=== PATIENT | male | born 1955 | race Caucasian/White ===

== ENCOUNTER 2017-08-12 09:36 | Inpatient (IN) ==
[2017-08-12] MEDS ORDERED: MAGNESIUM SULF RIDER 4 GM in PREMIX 1 EACH IV PRN (10:07)
[2017-08-12] MEDS ORDERED: ACETAMINOPHEN 325 MG TABLET PO PRN (10:07)
[2017-08-12] MEDS ORDERED: NITROGLYCERIN SL 0.4 MG TABLET SL PRN (10:07)
[2017-08-12] MEDS ORDERED: ONDANSETRON 4 MG/2 ML VIAL IV PRN (10:07)
[2017-08-12] MEDS ORDERED: MAGNESIUM SULF RIDER 2 GM in PREMIX 1 EACH IV PRN (10:07)
[2017-08-12] MEDS: SODIUM CHLORIDE 0.45% 1,000 ML IV SCH (12:50)
[2017-08-12 14:16] LABS: Magnesium 1.5 MG/DL (1.8-2.4); Risk Ratio 4.43; VLDL CHOLESTEROL 16.8 MG/DL
[2017-08-12] MEDS: PANTOPRAZOLE 40 MG TABLET PO SCH (14:46)
[2017-08-12] MEDS: AZITHROMYCIN INJ 500 MG in SODIUM CHLORIDE 0.9% 250 ML IV SCH (14:46)
[2017-08-12] MEDS: GABAPENTIN 300 MG CAPSULE PO SCH ×2 (15:00→21:03)
[2017-08-12] MEDS: FAMOTIDINE 20 MG TABLET PO SCH (21:03)
[2017-08-13 06:05] LABS: Basophils % 0.4 % (0.0-0.8); Eosinophils % 0.4 % (0.00-10.9); Hematocrit 42.8 VOL% (42.0-52.0); Hemoglobin 14.1 GM/DL (14.0-18.0); Immature Granulocytes % 0.5 %; Immature Granulocytes Absolute 0.04 #; Lymphocytes # 1.1 10*3/uL (1.4-4.0); Lymphocytes % 13.6 % (21.2-54.2); Mean Corpuscular HGB Conc 32.9 GM/DL (32-36); Mean Corpuscular Hemoglobin 30 PG (27-34); Mean Corpuscular Volume 91.1 FL (87-102); Mean Platelet Volume 9.6 FL (9.6-12.0); Monocytes # 0.7 10*3/uL (0.11-0.8); Monocytes % 9.2 % (1.7-12.7); Neutrophils % 75.9 % (38.7-73.9); Platelet Count 184 T/CUMM (130-400); Red Cell Distribution Width 15.2 % (9.3-17.3); White Blood Count 7.9 T/CUMM (4-12)
[2017-08-13 06:32] LABS: Band Neutrophils 5 % (0-10); Lymphocytes 13 % (20-55); Segmented Neutrophils 76 % (50-85); Total Cells Counted 100
[2017-08-13 06:33] LABS: Hypochromasia 1+; Microcytosis Slight; Platelet Estimate Adequate
[2017-08-13] MEDS: FAMOTIDINE 20 MG TABLET PO SCH ×2 (08:41→21:41)
[2017-08-13] MEDS: LISINOPRIL 10 MG TABLET PO SCH (08:41)
[2017-08-13] MEDS: GABAPENTIN 300 MG CAPSULE PO SCH ×3 (08:42→21:42)
[2017-08-13] MEDS: PANTOPRAZOLE 40 MG TABLET PO SCH (08:42)
[2017-08-13 09:06] LABS: Osmolality,Calculated 267.4 MOS/KG (273-304); Potassium 4.6 MMOL/L (3.5-5.1)
[2017-08-13 09:12] LABS: Troponin I Only 0.346 NG/ML (0.00-0.045)
[2017-08-13] MEDS: NICOTINE 14 MG/24 HR PATCH TRANSDERM SCH (09:44)
[2017-08-13] MEDS: ASPIRIN EC 81 MG TABLET PO SCH (09:44)
[2017-08-13] MEDS: CARVEDILOL 12.5 MG TABLET PO SCH ×2 (09:44→21:42)
[2017-08-13] MEDS: cefTRIAXone 1,000 MG in SYRINGE 1 EACH IV SCH (09:46)
[2017-08-13] MEDS ORDERED: ALBUTEROL/IPRATROPIUM 3 ML NEB RESP TX PRN (09:58)
[2017-08-13] MEDS: SODIUM CHLORIDE 0.45% 1,000 ML IV SCH ×2 (10:32→10:51)
[2017-08-13] MEDS: predniSONE 50 MG TABLET PO SCH (10:48)
[2017-08-13] MEDS: AZITHROMYCIN INJ 500 MG in SODIUM CHLORIDE 0.9% 250 ML IV SCH (13:56)
[2017-08-13] MEDS ORDERED: ATORVASTATIN 40 MG TABLET PO SCH (21:00)
[2017-08-14] MEDS: SODIUM CHLORIDE 0.45% 1,000 ML IV SCH (04:49)
[2017-08-14 08:29] VITALS: BP 112/69
[2017-08-14] MEDS: LISINOPRIL 10 MG TABLET PO SCH (09:27)
[2017-08-14] MEDS: CARVEDILOL 12.5 MG TABLET PO SCH (09:27)
[2017-08-14] MEDS: NICOTINE 14 MG/24 HR PATCH TRANSDERM SCH (09:27)
[2017-08-14] MEDS: GABAPENTIN 300 MG CAPSULE PO SCH (09:27)
[2017-08-14] MEDS: FAMOTIDINE 20 MG TABLET PO SCH (09:28)
[2017-08-14] MEDS: cefTRIAXone 1,000 MG in SYRINGE 1 EACH IV SCH (09:28)
[2017-08-14] MEDS: ASPIRIN EC 81 MG TABLET PO SCH (09:28)
[2017-08-14] MEDS: predniSONE 50 MG TABLET PO SCH (09:28)
[2017-08-14] MEDS: PANTOPRAZOLE 40 MG TABLET PO SCH (09:31)
== END 2017-08-14 14:19 | disposition home or self-care (01) | DRG 190 ==
LOC: N.TELEN 11:33 → SUATTDRO 11:33
PROVIDERS: ADMIT Internal Medicine Nephrology; ATTEND Internal Medicine Geriatric Medicine

== ENCOUNTER 2021-07-30 08:14 | Inpatient (IN) ==
[2021-07-30] MEDS ORDERED: ALBUTEROL/IPRATROPIUM 3 ML NEB RESP TX STA (08:30)
[2021-07-30 08:48] LABS: Basophils # 0.1 10*3/uL (0.0-0.2); Basophils % 0.4 % (0.0-0.8); Hematocrit 42.6 VOL% (42.0-52.0); Hemoglobin 13.1 GM/DL (14.0-18.0); Immature Granulocytes % 3.2 %; Immature Granulocytes Absolute 0.95 #; Lymphocytes # 0.7 10*3/uL (1.4-4.0); Lymphocytes % 2.2 % (21.2-54.2); Mean Corpuscular HGB Conc 30.8 GM/DL (32-36); Mean Corpuscular Volume 90.1 FL (87-102); Mean Platelet Volume 10.3 FL (9.6-12.0); Monocytes % 5.3 % (1.7-12.7); Neutrophils % 88.9 % (38.7-73.9); Platelet Count 303 T/CUMM (130-400); Red Blood Count 4.73 MC/CUMM (3.8-5.5); Red Cell Distribution Width 16.8 % (9.3-17.3); White Blood Count 29.7 T/CUMM (4-12)
[2021-07-30 09:00] LABS: ABG Base Excess 2.9 MMOL/L (-2.5-2.5); ABG HCO3 26.9 MMOL/L (20-26); ABG Oxygen Saturation 94.9 % (95-100); ABG PCO2 47.5 MM HG (35-48); ABG PH 7.389 (7.35-7.45); ABG PO2 74.2 MM HG (80-95); ABG TCO2 25.1 MMOL/L (23-27); Allen Test Positive
[2021-07-30 09:09] LABS: Band Neutrophils 4 % (0-10); Lymphocytes 1 % (20-55); Platelet Estimate Adequate; Segmented Neutrophils 92 % (50-85); Total Cells Counted 100
[2021-07-30 09:10] LABS: Albumin 2.6 G/DL (3.4-5.0); Bilirubin,Total 2.5 MG/DL (0.20-1.00); Calcium 8.5 MG/DL (8.5-10.1); Osmolality,Calculated 269.5 MOS/KG (273-304); Potassium 4.6 MMOL/L (3.5-5.1); Total Protein 6.9 G/DL (6.4-8.2)
[2021-07-30] MEDS ORDERED: VANCOMYCIN INJ 1,500 MG in SODIUM CHLORIDE 0.9% 250 ML IV STA (09:12)
[2021-07-30] MEDS ORDERED: GLUCAGON 1 MG VIAL IM PRN ×2 (11:22)
[2021-07-30] MEDS ORDERED: ONDANSETRON 4 MG/2 ML VIAL IV PRN (11:22)
[2021-07-30] MEDS ORDERED: ACETAMINOPHEN 325 MG TABLET PO PRN (11:22)
[2021-07-30] MEDS ORDERED: DEXTROSE 50% 25 GM/50 ML VIAL IV PRN (11:22)
[2021-07-30] MEDS ORDERED: DEXTROSE 50% 25 GM/50 ML SYRINGE IV PRN (11:37)
[2021-07-30] MEDS ORDERED: hydrALAZINE 20 MG/1 ML VIAL IV PRN (11:39)
[2021-07-30] MEDS ORDERED: DOCUSATE SODIUM 100 MG CAPSULE PO PRN (11:46)
[2021-07-30] MEDS: ENOXAPARIN 40 MG/0.4 ML SYRINGE SUBCUT SCH (12:40)
[2021-07-30] MEDS: methylPREDNISolone SOD SUC 40 MG/1 ML VIAL IV SCH ×2 (12:51→20:37)
[2021-07-30] MEDS: SODIUM CHLORIDE 0.9% 1,000 ML IV SCH ×2 (12:51→20:44)
[2021-07-30] MEDS: PANTOPRAZOLE 40 MG TABLET PO SCH (12:51)
[2021-07-30] MEDS: LEVOFLOXACIN INJ 750 MG/150 ML PREMIX IV SCH (12:52)
[2021-07-30] MEDS: INSULIN LISPRO 100 UNIT/ML SUBCUT SCH ×3 (12:55→20:36)
[2021-07-30] MEDS: ALBUTEROL/IPRATROPIUM 3 ML NEB RESP TX SCH ×2 (14:05→19:30)
[2021-07-30] MEDS: ATORVASTATIN 40 MG TABLET PO SCH (20:36)
[2021-07-30] MEDS: GABAPENTIN 300 MG CAPSULE PO SCH (20:36)
[2021-07-31] MEDS: ALBUTEROL/IPRATROPIUM 3 ML NEB RESP TX SCH ×4 (01:56→18:52)
[2021-07-31 02:02] LABS: Basophils % 0.1 % (0.0-0.8); Hematocrit 40.2 VOL% (42.0-52.0); Hemoglobin 12.2 GM/DL (14.0-18.0); Immature Granulocytes % 1.8 %; Immature Granulocytes Absolute 0.49 #; Lymphocytes # 0.5 10*3/uL (1.4-4.0); Lymphocytes % 1.7 % (21.2-54.2); Mean Corpuscular HGB Conc 30.3 GM/DL (32-36); Mean Corpuscular Volume 90.7 FL (87-102); Mean Platelet Volume 10.1 FL (9.6-12.0); Monocytes % 4.7 % (1.7-12.7); Neutrophils % 91.7 % (38.7-73.9); Platelet Count 256 T/CUMM (130-400); Red Blood Count 4.43 MC/CUMM (3.8-5.5); Red Cell Distribution Width 16.5 % (9.3-17.3); White Blood Count 27.6 T/CUMM (4-12)
[2021-07-31 02:16] LABS: Calcium 8.6 MG/DL (8.5-10.1); Osmolality,Calculated 272.4 MOS/KG (273-304); Potassium 3.8 MMOL/L (3.5-5.1)
[2021-07-31 03:49] LABS: Band Neutrophils 7 % (0-10); Hypochromasia 1+; Lymphocytes 2 % (20-55); Microcytosis 1+; Segmented Neutrophils 86 % (50-85); Total Cells Counted 100
[2021-07-31] MEDS: SODIUM CHLORIDE 0.9% 1,000 ML IV SCH ×2 (04:55→10:40)
[2021-07-31] MEDS: methylPREDNISolone SOD SUC 40 MG/1 ML VIAL IV SCH ×3 (04:55→20:47)
[2021-07-31] MEDS: INSULIN LISPRO 100 UNIT/ML SUBCUT SCH ×4 (08:46→20:47)
[2021-07-31] MEDS: LOSARTAN 25 MG TABLET PO SCH ×2 (09:23→20:47)
[2021-07-31] MEDS: PANTOPRAZOLE 40 MG TABLET PO SCH (09:23)
[2021-07-31] MEDS: ENOXAPARIN 40 MG/0.4 ML SYRINGE SUBCUT SCH ×2 (09:24→12:04)
[2021-07-31] MEDS: LEVOFLOXACIN INJ 750 MG/150 ML PREMIX IV SCH (12:14)
[2021-07-31] MEDS: ATORVASTATIN 40 MG TABLET PO SCH (20:47)
[2021-07-31] MEDS: GABAPENTIN 300 MG CAPSULE PO SCH (20:47)
[2021-08-01] MEDS: ALBUTEROL/IPRATROPIUM 3 ML NEB RESP TX SCH ×4 (00:38→18:58)
[2021-08-01] MEDS: methylPREDNISolone SOD SUC 40 MG/1 ML VIAL IV SCH ×3 (04:13→21:11)
[2021-08-01 05:18] LABS: Basophils % 0.2 % (0.0-0.8); Hematocrit 37.2 VOL% (42.0-52.0); Hemoglobin 11.1 GM/DL (14.0-18.0); Immature Granulocytes % 1.6 %; Immature Granulocytes Absolute 0.37 #; Lymphocytes # 0.4 10*3/uL (1.4-4.0); Lymphocytes % 1.9 % (21.2-54.2); Mean Corpuscular HGB Conc 29.8 GM/DL (32-36); Mean Corpuscular Volume 93.2 FL (87-102); Mean Platelet Volume 10.7 FL (9.6-12.0); Monocytes % 3.5 % (1.7-12.7); Neutrophils % 92.8 % (38.7-73.9); Platelet Count 206 T/CUMM (130-400); Red Blood Count 3.99 MC/CUMM (3.8-5.5); Red Cell Distribution Width 16.8 % (9.3-17.3); White Blood Count 23.4 T/CUMM (4-12)
[2021-08-01 05:33] LABS: Calcium 8.2 MG/DL (8.5-10.1); Osmolality,Calculated 282.8 MOS/KG (273-304); Potassium 4.4 MMOL/L (3.5-5.1)
[2021-08-01 05:40] LABS: Hypochromasia Slight; Lymphocytes 1 % (20-55); Microcytosis Slight; Platelet Estimate Adequate; Segmented Neutrophils 97 % (50-85); Total Cells Counted 100
[2021-08-01] MEDS: INSULIN LISPRO 100 UNIT/ML SUBCUT SCH ×4 (08:14→21:11)
[2021-08-01] MEDS: LOSARTAN 25 MG TABLET PO SCH ×2 (09:14→21:11)
[2021-08-01] MEDS: ENOXAPARIN 40 MG/0.4 ML SYRINGE SUBCUT SCH ×2 (09:14→12:19)
[2021-08-01] MEDS: PANTOPRAZOLE 40 MG TABLET PO SCH (09:14)
[2021-08-01] MEDS: LEVOFLOXACIN INJ 750 MG/150 ML PREMIX IV SCH (12:26)
[2021-08-01] MEDS: GABAPENTIN 300 MG CAPSULE PO SCH (21:10)
[2021-08-01] MEDS: ATORVASTATIN 40 MG TABLET PO SCH (21:11)
[2021-08-02] MEDS: ALBUTEROL/IPRATROPIUM 3 ML NEB RESP TX SCH ×2 (00:50→07:32)
[2021-08-02] MEDS: methylPREDNISolone SOD SUC 40 MG/1 ML VIAL IV SCH ×2 (04:16→12:28)
[2021-08-02 05:53] LABS: Basophils % 0.1 % (0.0-0.8); Eosinophils % 0.1 % (0.00-10.9); Hematocrit 36.6 VOL% (42.0-52.0); Hemoglobin 11.1 GM/DL (14.0-18.0); Immature Granulocytes % 0.9 %; Immature Granulocytes Absolute 0.15 #; Lymphocytes # 0.4 10*3/uL (1.4-4.0); Lymphocytes % 2.8 % (21.2-54.2); Mean Corpuscular HGB Conc 30.3 GM/DL (32-36); Mean Corpuscular Volume 92.4 FL (87-102); Mean Platelet Volume 10.9 FL (9.6-12.0); Monocytes % 4.3 % (1.7-12.7); NRBC # 0.02 10*3/uL; Neutrophils % 91.8 % (38.7-73.9); Platelet Count 238 T/CUMM (130-400); Red Blood Count 3.96 MC/CUMM (3.8-5.5)
[2021-08-02 06:13] LABS: Calcium 8.6 MG/DL (8.5-10.1); Potassium 4.6 MMOL/L (3.5-5.1)
[2021-08-02 06:50] LABS: Band Neutrophils 3 % (0-10); Lymphocytes 6 % (20-55); Segmented Neutrophils 89 % (50-85); Total Cells Counted 100
[2021-08-02 06:51] LABS: Hypochromasia 1+; Microcytosis 1+; Platelet Estimate Normal; Target Cells Slight
[2021-08-02] MEDS: LOSARTAN 25 MG TABLET PO SCH (08:45)
[2021-08-02] MEDS: PANTOPRAZOLE 40 MG TABLET PO SCH (08:45)
[2021-08-02] MEDS: INSULIN LISPRO 100 UNIT/ML SUBCUT SCH ×2 (10:13→12:28)
[2021-08-02 12:14] VITALS: BP 95/48
[2021-08-02] MEDS: ENOXAPARIN 40 MG/0.4 ML SYRINGE SUBCUT SCH (12:27)
[2021-08-02] MEDS: LEVOFLOXACIN INJ 750 MG/150 ML PREMIX IV SCH (12:31)
== END 2021-08-02 15:20 | disposition hospice, home (50) | DRG 193 ==
LOC: N.ED 08:14 → N.EDINP 11:22 → SUATTDRO 11:22 → N.TELEN 15:00 → N.EDINP 15:10
PROVIDERS: ADMIT Phlebology; ATTEND Internal Medicine